=== PATIENT | female | born 1980 | race Caucasian/White ===

== ENCOUNTER 2024-01-22 21:11 | Emergency (ER) | payer BC, SELFPAY ==
[2024-01-22 21:16] VITALS: BP 128/86
--- NOTE | 2024-01-23 00:03 | ED.GENMED ---
History of Present Illness
General
Chief Complaint: Musculo-Skeletal Complaint
Source: patient
Time Seen by Provider: 01/22/24 23:52
Travel History
Have you had any contact with someone who has COVID-19?: No
Do you have any symptoms of coronavirus? Fever > 100 degrees, chills, cough, shortness of breath, sore throat, loss of taste or smell, muscle aches, or headache?: No
History of Present Illness
History of Present Illness:
43-year-old female presents emergency room complaining right knee pain. Patient a fall landing on her knee. Patient has pain with flexing of the knee. She has pain with weightbearing. No other injuries.
Past History
Past History
ED Past Medical History: Psychiatric (ADHD, anxiety, OCD)
ED Past Surgical History: Cholecystectomy and
Social History
Tobacco: Non-smoker
Alcohol: Occasional
Personal:
Living: with family
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
Family History
Family History: CAD (Dad had his first heart attack at age 41, at age 59 of CVA. Mom is still living); Negative Sudden
Phy Exam
Physical Exam
Physical Exam:
General: Awake, Alert, Oriented X3. No acute distress.
Vitals: unremarkable
Head: Atraumatic
Neuro: Nonfocal
Skin: Warm, dry, no rash
Extremities: pulses equal b/l, no edema, mild swelling right knee. Pain with flexion extension. No pain to palpation along the medial or lateral margins of the knee. Patella appears intact. Patient able to extend the leg fully at the hip
indicating the patellar mechanism is intact.
Course
Orders/Labs/Results
Orders:
Orders
01/22/24 21:20
Knee, Right 4 or More Views [CR Knee- Right 4 Or More View*] Urgent
Comment:
Reason For Exam: fall
01/23/24 00:01
Knee Immobilizer Right-Treatme ONCE
Ibuprofen [Motrin] 600 mg PO NOW STA
Vital Signs
Initial and Last Documented VS:
Initial Vital Signs
Temp Pulse Resp BP Pulse Ox
99.0 F 107 16 128/86 96
01/22/24 21:16 01/22/24 21:16 01/22/24 21:16 01/22/24 21:16 01/22/24 21:16
Last Documented Vital Signs
Temp Pulse Resp BP Pulse Ox
99.0 F 107 16 128/86 96
01/22/24 21:16 01/22/24 21:16 01/22/24 21:16 01/22/24 21:16 01/22/24 21:16
MDM/Problems Addressed
Differential Diagnosis Includes:
Fracture, contusion, meniscal injury
MDM/Problems Addressed:
No evidence of fracture on x-ray. Patient is a mild amount of swelling of the knee but no large effusion. Will place her in a knee immobilizer, provide crutches. Recommend NSAIDs, ice, rest and follow-up with Ortho
*Radiology
Radiology exam reviewed: preliminary read by ED provider (Reviewed the patient's knee x-ray and see no acute fracture or pathology)
*Pulse Oximetry
Patient hypoxic: no
*Critical Care Note
Total Time (30-74mins, 75-104mins- exclusive of procedures): Not Applicable
ED Attending Note
-
Portions of this chart may have been created with voice recognition software.� Occasional wrong word or��sound alike� substitutions may have occurred due to the inherent limitations of voice recognition software.
Discharge Plan
Departure
Patient Disposition: Home (Routine Discharge)
Date of Disposition: 01/23/24
Time of Disposition: 00:03
Patient with high blood pressure during this ER visit?: No
Condition: Good
Discharge Problem:
Sprain of right knee
Instructions: Knee Sprain (DC), How to use crutches
Prescriptions:
No Action
pramipexole 1 mg tablet
1 mg PO HS
escitalopram oxalate 20 mg tablet
20 mg PO DAILY
atomoxetine 60 mg capsule
60 mg PO DAILY
bupropion HCl [Wellbutrin SR] 150 mg Tablet Sustained-Release 12 Hr
150 mg PO BID
Referrals:
Ludin Farfan MD [Active] -
Brock Aguirre DO [Family Provider] -
Interventions
Interventions:
*Risk Screen - Suicide Last Done: 01/22/24 21:18
*General Assessment Last Done: 01/22/24 21:18
*Neglect/Abuse Screening Last Done: 01/22/24 21:18
ED-Musculoskeletal Assessment Last Done: 01/23/24 00:03
Discharge Date and Time
Print Language: [place] CITIZ[place]
[2024-01-23] MEDS: MOTRIN 600 MG PO (00:06)
== END 2024-01-23 00:28 | disposition home or self-care (01) ==
LOC: EMR 21:11
PROVIDERS: EMERGENCY PHYSICIAN Emergency Medicine; FAMILY PHYSICIAN Family Medicine
DX: S83.91XA Sprain of unspecified site of right knee, initial encounter (principal); X58.XXXA Exposure to other specified factors, initial encounter; F90.9 Attention-deficit hyperactivity disorder, unspecified type; F42.9 Obsessive-compulsive disorder, unspecified; Z82.3 Family history of stroke; Z82.49 Family history of ischemic heart disease and other diseases of the circulatory system; Z90.49 Acquired absence of other specified parts of digestive tract
CPT/HCPCS: 99283; 29505; 73564

== ENCOUNTER 2024-05-21 16:06 | Emergency (ER) | payer BC, SELFPAY ==
[2024-05-21 16:14] VITALS: BP 121/83
--- NOTE | 2024-05-21 19:19 | ED.GENMED ---
History of Present Illness
General
Chief Complaint: Head Injury
Source: patient
Time Seen by Provider: 05/21/24 19:05
History of Present Illness
History of Present Illness:
44yoF with a history of hypertension presenting for evaluation after a head injury around 2:30 PM this afternoon. Patient was on a swing when the swing broke. She fell backwards and back of her head on a metal beam. There was no loss of
consciousness. Patient reports headache, dizziness, nausea, photophobia, and speech disturbance immediately after the head injury. Her speech symptoms have resolved but she continues to have a headache. Patient has not taken anything
[id number] for her symptoms. She is not on any blood thinners.
Past History
Past History
ED Past Medical History: Psychiatric (ADHD, anxiety, OCD)
ED Past Surgical History: Cholecystectomy and
Social History
Tobacco: Non-smoker
Alcohol: Occasional
Personal:
Living: with family
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
Family History
Family History: CAD (Dad had his first heart attack at age 41, at age 59 of CVA. Mom is still living); Negative Sudden
Phy Exam
General Physical Exam
General Presentation: well appearing and no apparent distress
General age: appears stated age
General Skin: warm and dry
General Habitus: normal
General Mental: alert
ENT Exam
ENT Exam: other (+Posterior scalp hematoma and tenderness)
Additional ENT: No cervical spine tenderness
Eye Exam
Eye Exam: PERRL
Neurological Exam
Neurological Exam: alert and no motor deficits
Shanique Coma Scale
Eye Opening: Spontaneous
Verbal Response: Oriented
Motor Response: Obeys Commands
GCS Total Score: 15
Skin Exam
Skin Exam: normal color and warm/dry
Psychiatric Exam
Psychiatric Exam: normal mood/affect
Course
Orders/Labs/Results
Orders:
Orders
10/04/24 16:20
CT Head W/o Iv Contrast Urgent
Comment:
Reason For Exam: fall, hematoma to posterior head, no thinners
Vital Signs
Initial and Last Documented VS:
Initial Vital Signs
Temp Pulse Resp BP Pulse Ox
98.0 F 92 18 121/83 98
05/21/24 16:14 05/21/24 16:14 05/21/24 16:14 05/21/24 16:14 05/21/24 16:14
Last Documented Vital Signs
Temp Pulse Resp BP Pulse Ox
98.0 F 84 16 120/82 98
05/21/24 16:14 05/21/24 20:05 05/21/24 20:05 05/21/24 20:05 05/21/24 20:05
MDM/Problems Addressed
Differential Diagnosis Includes:
44yoF here after a head injury. No loss of consciousness. C/o headache, photophobia, dizziness, nausea. No blood thinners. Vital signs stable. She is awake, alert, with a GCS of 15. She has a posterior scalp hematoma and tenderness on exam. No
other external signs of head trauma. Cervical spine cleared via Nexus criteria. Differential diagnosis includes but is not limited to: Closed head injury, concussion, intracranial hemorrhage, skull fracture
CT head obtained in triage which is negative for acute intracranial abnormalities. Patient is stable for discharge. Supportive care discussed including rest and limiting screen time. Advised follow-up with PCP. ED return precautions discussed.
She expressed understanding and is agreeable to plan. She was discharged admission.
*Critical Care Note
Total Time (30-74mins, 75-104mins- exclusive of procedures): Not Applicable
ED Attending Note
-
Portions of this chart may have been created with voice recognition software.� Occasional wrong word or��sound alike� substitutions may have occurred due to the inherent limitations of voice recognition software.
Discharge Plan
Departure
Patient Disposition: Home (Routine Discharge)
Date of Disposition: 05/21/24
Time of Disposition: 19:20
Patient with high blood pressure during this ER visit?: No
Discharge Problem:
Closed head injury
Instructions: Head Injury in Adults (DC)
Prescriptions:
No Action
pramipexole 1 mg tablet
1 mg PO HS
escitalopram oxalate 20 mg tablet
20 mg PO DAILY
atomoxetine 60 mg capsule
60 mg PO DAILY
bupropion HCl [Wellbutrin SR] 150 mg Tablet Sustained-Release 12 Hr
150 mg PO BID
Activity Restrictions/Additional Instructions:
Apply ice to affected area. Take Tylenol and ibuprofen as needed for pain.
Please follow-up with your family doctor next week if symptoms persist. Return to the ER with any worsening symptoms.
Interventions
Interventions:
*Risk Screen - Suicide Last Done: 05/21/24 19:58
*General Assessment Last Done: 05/21/24 19:58
*Neglect/Abuse Screening Last Done: 05/21/24 19:58
ED- Fall Risk Assessment Last Done: 05/21/24 19:58
*ED COVID-19 Vaccine History Last Done: 05/21/24 19:58
*Nursing Disposition Last Done: 05/21/24 20:08
ED- Neurological Assessment Last Done: 05/21/24 19:58
ED-Skin Assessment Last Done: 05/21/24 19:58
Discharge Date and Time
Discharge Date/Time: 05/21/24 20:09
Print Language: SYRIAC
[2024-05-21 20:05] VITALS: BP 120/82
== END 2024-05-21 20:09 | disposition home or self-care (01) ==
LOC: EMR 16:06
PROVIDERS: EMERGENCY PHYSICIAN Emergency Medicine; FAMILY PHYSICIAN Family Medicine
DX: S09.90XA Unspecified injury of head, initial encounter (principal); S00.03XA Contusion of scalp, initial encounter; W19.XXXA Unspecified fall, initial encounter; I10 Essential (primary) hypertension; F41.9 Anxiety disorder, unspecified; F90.9 Attention-deficit hyperactivity disorder, unspecified type; F42.9 Obsessive-compulsive disorder, unspecified; Z82.3 Family history of stroke; Z82.49 Family history of ischemic heart disease and other diseases of the circulatory system; Z90.49 Acquired absence of other specified parts of digestive tract
CPT/HCPCS: 99284; 70450

== ENCOUNTER → 2024-08-27 10:25 | Outpatient (REF) | payer BC, SELFPAY | LOC: HWWDC 10:25 | PROVIDERS: ATTENDING PHYSICIAN Family Medicine; FAMILY PHYSICIAN Nurse Practitioner Adult Health | DX: Z12.31 Encounter for screening mammogram for malignant neoplasm of breast (principal) | CPT/HCPCS: 77063; 77067 ==

== ENCOUNTER → 2024-09-08 09:01 | Outpatient (REF) | payer BC, SELFPAY | LOC: WDC 09:01 | PROVIDERS: ATTENDING PHYSICIAN Family Medicine | DX: R92.2 Inconclusive mammogram (principal) | CPT/HCPCS: 76641 ==

== ENCOUNTER 2025-07-13 08:12 | Emergency (ER) | payer OTHER, SELFPAY ==
[2025-07-13 08:17] VITALS: BP 136/84
--- NOTE | 2025-07-13 09:05 | ED.GENMED ---
History of Present Illness
General
Chief Complaint: Skin Problem
Source: patient
Time Seen by Provider: 07/13/25 08:52
History of Present Illness
History of Present Illness:
45-year-old female with past medical history of hypertension, ADHD/anxiety/OCD presenting to the emergency department for evaluation of what she believes to be a left breast infection that she started to notice become erythematous this past Friday
and has gradually gotten worse, today increased pain and drainage. She denies any fevers but states she does have a feeling of being ill. Denies any history of similar. She notes that she has had 2 breast reductions in the past but does not
follow with any breast specialist here. She does note a history of mammograms in the past without any abnormalities. Family history was negative for breast cancer.
Past History
Past History
ED Past Medical History: HTN and Psychiatric (ADHD, anxiety, OCD)
ED Past Surgical History: Cholecystectomy, and Other
Social History
Tobacco: Non-smoker
Alcohol: Occasional
Drug: None
Personal:
Living: with family
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
Family History
Family History: CAD (Dad had his first heart attack at age 41, at age 59 of CVA. Mom is still living); Negative Sudden
Review of Systems
Review of Systems
All Other Systems: ROS reviewed and negative except as documented in HPI and ROS
Phy Exam
Physical Exam
Physical Exam:
GENERAL: Alert , in no apparent distress
EYE: conjunctiva clear
Head: Normocephalic atraumatic
NECK: Supple,
ENT: mmm.
CHEST WALL: Exam Chaperoned by ED MITRA Mckenna: Left breast is erythematous below the nipple/areola, indurated, ~1cm opening/draining abscess. hot to touch and tender. No nipple retractions. No drainage from nipple. No lymphadenopathy
LUNGS: no acute respiratory distress
NEUROLOGICAL: Alert and oriented
SKIN: Warm and dry, skin intact.
MUSCULOSKELETAL: well perfused.
PSYCH: Normal and appropriate interaction.
Scores
Heart Failure Risk
Heart Failure Risk Score: Not Applicable
Heart Score for Chest Pain Patients
STEMI patient?: Not applicable
Withdrawal Assessment of Alcohol
Withdrawal Assessment Completed?: Not applicable
Course
Orders/Labs/Results
Orders:
Orders
07/13/25 09:07
US Breast Left Ltd WDC Urgent
Reason for Exam: LEFT BREAST ABSCESS
Vital Signs
Initial and Last Documented VS:
Initial Vital Signs
Temp Pulse Resp BP Pulse Ox
98.6 F 100 16 136/84 98
07/13/25 08:17 07/13/25 08:17 07/13/25 08:17 07/13/25 08:17 07/13/25 08:17
Last Documented Vital Signs
Temp Pulse Resp BP Pulse Ox
98.6 F 100 16 136/84 98
07/13/25 08:17 07/13/25 08:17 07/13/25 08:17 07/13/25 08:17 07/13/25 09:07
MDM/Problems Addressed
Differential Diagnosis Includes:
Cellulitis
Abscess
Malignancy
Atopic Dermatitis
Candidiasis/Fungal infection
Ring worm
MDM/Problems Addressed:
45-year-old female presenting to the ER for evaluation of left breast pain and erythema, started noticing drainage and the increased pain today prompting her to come to the ER. No fevers. No history of diabetes. History of 2 previous breast
reductions. Will try for ultrasound today. Will notify the breast surgical team for hopeful close follow-up as well as patient will likely need mammogram in the near future. Will initiate patient on antibiotics. Disposition pending.
*Radiology
Radiology exam reviewed: radiology read reviewed
*Pulse Oximetry
SaO2: 98
Oxygen Mode of Delivery: Room air
Patient hypoxic: no
*Critical Care Note
Total Time (30-74mins, 75-104mins- exclusive of procedures): Not Applicable
Patient Management
Discussion with other providers: Orbitread Operator
Escalation/DeEscalation of care consider admission/obs:
Patient's ultrasound shows no evidence for fluid collection. Will treat with p.o. doxycycline for 10 days. I did discuss the case with breast surgeon, Dr. Beach, who is in agreement with treatment plan and can follow up with her on an outpatient
basis. Patient aware of return precautions to the ER
ED Attending Note
-
Portions of this chart may have been created with voice recognition software.� Occasional wrong word or��sound alike� substitutions may have occurred due to the inherent limitations of voice recognition software.
Discharge Plan
Departure
Patient Disposition: Home (Routine Discharge)
Date of Disposition: 07/13/25
Time of Disposition: 09:41
Patient with high blood pressure during this ER visit?: No
Discharge Problem:
Cellulitis of left breast
Instructions: Cellulitis (Skin Infection), Adult (DC)
Prescriptions:
New
doxycycline hyclate 100 mg tablet
100 mg PO BID 10 Days Qty: 20 0RF
No Action
pramipexole 1 mg tablet
1 mg PO HS
escitalopram oxalate 20 mg tablet
20 mg PO DAILY
atomoxetine 60 mg capsule
60 mg PO DAILY
bupropion HCl [Wellbutrin SR] 150 mg Tablet Sustained-Release 12 Hr
150 mg PO BID
Referrals:
Elayne Beach MD [Active, Surgical]
Brock Aguirre DO [Family Provider, Family Practice]
Interventions
Interventions:
*Risk Screen - Suicide Last Done: 07/13/25 08:17
*General Assessment Last Done: 07/13/25 08:17
*Neglect/Abuse Screening Last Done: 07/13/25 08:17
*ED- Fall Risk Assessment Last Done: 07/13/25 08:17
*ED COVID-19 Vaccine History Last Done: 07/13/25 08:17
*ED Influenza Vaccine History Last Done: 07/13/25 08:17
*Nursing Disposition Last Done: 07/13/25 10:08
ED-Skin Assessment Last Done: 07/13/25 10:08
Discharge Date and Time
Discharge Date/Time: 07/13/25 10:09
Print Language: HUNGARIAN
== END 2025-07-13 10:09 | disposition home or self-care (01) ==
LOC: EMR 08:12
PROVIDERS: EMERGENCY PHYSICIAN Emergency Medicine; FAMILY PHYSICIAN Family Medicine
DX: N61.0 Mastitis without abscess (principal); I10 Essential (primary) hypertension; Z90.49 Acquired absence of other specified parts of digestive tract
CPT/HCPCS: 99284; 76642

== ENCOUNTER 2025-07-27 21:02 | Observation (INO) | payer OTHER, SELFPAY ==
[2025-07-27 14:59] VITALS: BP 128/78
[2025-07-27 15:17] LABS: Hematocrit 40.3 % (37.0-47.0); Hemoglobin 13.9 g/dL (12.0-16.0); Mean Corp Hgb Conc. 34.5 g/dL (33.0-37.0); Mean Corpuscular Volume 88.6 fL (81.0-99.0); Nucleated Red Blood Cells % 0 %; Platelet Count 251 10^3/uL (130-400); Red Cell Dist. Width 12.1 % (11.5-14.5)
[2025-07-27 15:33] LABS: ALT (SGPT) 50 U/L (0-35); AST (SGOT) 44 U/L (14-36); Albumin 4.9 g/dl (3.5-5.0); Alkaline Phosphatase 54 U/L (38-126); Blood Urea Nitrogen 10 mg/dl (7-17); Calcium 9.4 mg/dl (8.4-10.2); Carbon Dioxide 29 mmol/L (22-30); Chloride 103 mmol/L (98-107); Glucose 81 mg/dl (70-99); Potassium 4.4 mmol/L (3.5-5.1); Sodium 137 mmol/L (135-145); Total Protein 8.2 g/dl (6.3-8.2); eGFR > 60.00
--- NOTE | 2025-07-27 18:22 | ED.GENMED ---
History of Present Illness
<Scott Peña PA-C - Last Filed: 07/27/25 18:29>
General
Chief Complaint: Skin Problem
Source: patient and records
Time Seen by Provider: 07/27/25 18:10
History of Present Illness
History of Present Illness:
45-year-old female with past medical history of hypertension, anxiety and OCD presenting to the ER at the request of her primary care team as well as breast care team after she has been dealing with a left breast cellulitis for 2 weeks, initially
seen by myself and started on doxycycline, had arranged follow-up with Dr. Beach where she was reportedly started on a second antibiotic after symptoms initially got better but then worsened again, started to notice improvement for about 3 days
but then started to get reoccurring erythema and pain. Patient denies any fevers or chills but states she does feel warm. No other concerns presently.
Past History
<Scott Peña PA-C - Last Filed: 07/27/25 18:29>
Past History
ED Past Medical History: HTN and Psychiatric (ADHD, anxiety, OCD)
ED Past Surgical History: Cholecystectomy, and Other
Social History
Tobacco: Non-smoker
Alcohol: Occasional
Drug: None
Personal:
Living: with family
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
Family History
Family History: CAD (Dad had his first heart attack at age 41, at age 59 of CVA. Mom is still living); Negative Sudden
Review of Systems
<SHELBY Yusuf Last Filed: 07/27/25 18:29>
Review of Systems
All Other Systems: ROS reviewed and negative except as documented in HPI and ROS
Phy Exam
<SHELBY Yusuf Last Filed: 07/27/25 18:29>
Physical Exam
Physical Exam:
GENERAL: Alert , in no apparent distress
EYE: conjunctiva clear
Head: Normocephalic atraumatic
NECK: Supple,
ENT: mmm.
LUNGS: no acute respiratory distress
LEFT BREAST: Chaperoned by ED MITRA Muñoz: Dressing overlying the inferior portion of the left breast with surrounding erythema, still mild induration. No drainage
NEUROLOGICAL: Alert and oriented
SKIN: Warm and dry, skin intact.
MUSCULOSKELETAL: well perfused.
PSYCH: Normal and appropriate interaction.
Scores
<Scott Peña PA-C - Last Filed: 07/27/25 18:29>
Heart Failure Risk
Heart Failure Risk Score: Not Applicable
Heart Score for Chest Pain Patients
STEMI patient?: Not applicable
Withdrawal Assessment of Alcohol
Withdrawal Assessment Completed?: Not applicable
Sepsis
<Scott Peña PA-C - Last Filed: 07/27/25 18:29>
Sepsis Screening
Sepsis Assessment: Sepsis Ruled Out
Sepsis Screen
Sepsis Screen: Sepsis Ruled Out
Date: 07/27/25
Time: 18:29
<Petros Hearn DO - Last Filed: 07/27/25 18:33>
Sepsis Screen
Sepsis Screen: Sepsis Ruled Out
Date: 07/27/25
Time: 18:31
Course
<Scott Peña PA-C - Last Filed: 07/27/25 18:29>
Orders/Labs/Results
Orders:
Orders
07/27/25 15:09
Complete Blood Count/With Diff Urgent
Comprehensive Metabolic Panel Urgent
Lactic Acid Urgent
Blood Culture Urgent
ILANA Source: Blood/Venous
Specimen Description:
07/27/25 18:22
Vancomycin [Vancocin] 2,000 mg 0.9% Sodium Chloride 500 ml [Nss] 500 ml IV NOW
07/27/25 18:26
Ketorolac [Toradol] 30 mg IV NOW STA
07/27/25 18:31
Morphine Sulfate 4 mg IV NOW STA
Abnormal Lab Results
07/27/25
15:09
Lactic Acid < 0.5 L mmol/L
(0.7-2.0)
AST 44 H U/L
(14-36)
ALT 50 H U/L
(0-35)
07/27/25 15:09
07/27/25 15:09
Vital Signs
Initial and Last Documented VS:
Initial Vital Signs
Temp Pulse Resp BP Pulse Ox
98.4 F 96 16 128/78 95
07/27/25 14:59 07/27/25 14:59 07/27/25 14:59 07/27/25 14:59 07/27/25 14:59
Last Documented Vital Signs
Temp Pulse Resp BP Pulse Ox
98.4 F 96 16 128/78 95
07/27/25 14:59 07/27/25 14:59 07/27/25 14:59 07/27/25 14:59 07/27/25 18:26
<Petros Hearn, DO - Last Filed: 07/27/25 18:33>
Orders/Labs/Results
Orders:
Orders
07/27/25 15:09
Complete Blood Count/With Diff Urgent
Comprehensive Metabolic Panel Urgent
Lactic Acid Urgent
Blood Culture Urgent
ILANA Source: Blood/Venous
Specimen Description:
07/27/25 18:22
Vancomycin [Vancocin] 2,000 mg 0.9% Sodium Chloride 500 ml [Nss] 500 ml IV NOW
07/27/25 18:26
Ketorolac [Toradol] 30 mg IV NOW STA
07/27/25 18:31
Morphine Sulfate 4 mg IV NOW STA
Abnormal Lab Results
07/27/25
15:09
Lactic Acid < 0.5 L mmol/L
(0.7-2.0)
AST 44 H U/L
(14-36)
ALT 50 H U/L
(0-35)
07/27/25 15:09
07/27/25 15:09
Vital Signs
Initial and Last Documented VS:
Initial Vital Signs
Temp Pulse Resp BP Pulse Ox
98.4 F 96 16 128/78 95
07/27/25 14:59 07/27/25 14:59 07/27/25 14:59 07/27/25 14:59 07/27/25 14:59
Last Documented Vital Signs
Temp Pulse Resp BP Pulse Ox
98.4 F 96 16 128/78 95
07/27/25 14:59 07/27/25 14:59 07/27/25 14:59 07/27/25 14:59 07/27/25 18:26
<Scott Peña PA-C - Last Filed: 07/27/25 18:29>
MDM/Problems Addressed
Differential Diagnosis Includes:
Breast abscess
Cellulitis
Patient states no malignancy on further imaging
MDM/Problems Addressed:
45-year-old female presenting to the ER for evaluation and ultimately admission for IV antibiotics due to reoccurring breast abscess/cellulitis. Patient has been on 2 separate antibiotics with intermittent resolution but then reoccurrence of the
symptoms. Reportedly culture grew MRSA. Will initiate patient on IV vancomycin. Will notify hospitalist team.
<Scott Peña PA-C - Last Filed: 07/27/25 18:29>
*Pulse Oximetry
SaO2: 95
Oxygen Mode of Delivery: Room air
Patient hypoxic: no
*Critical Care Note
Total Time (30-74mins, 75-104mins- exclusive of procedures): Not Applicable
Data Reviewed
Review of Other/Old Records Reveals: Labs and Records
<Scott Peña PA-C - Last Filed: 07/27/25 18:29>
Patient Management
Discussion with other providers: Hospitalist
Escalation/DeEscalation of care consider admission/obs:
Hospitalist team was notified and accepts for continued evaluation and treatment
ED Attending Note
<Scott Peña PA-C - Last Filed: 07/27/25 18:29>
-
Portions of this chart may have been created with voice recognition software.� Occasional wrong word or��sound alike� substitutions may have occurred due to the inherent limitations of voice recognition software.
<Petros Hearn DO - Last Filed: 07/27/25 18:33>
ED Attending Note
Patient seen and examined by attending physician: Yes
I performed the substantive portion of visit, reviewed & personally made and approve the management plan that is documented in note by myself or EBONY.: Yes
ED Attending Note:
I have seen and evaluated the patient with a [id number] encounter. I have spoken to the advance practicer provider and involved in the medical history, the physical exam, medical decision making.
Evaluation and management service: agree unless noted differently below.
Results interpretation: agree unless noted differently below.
Focused HPI: 45-year-old female presenting for evaluation of persistent left breast cellulitis. Patient has been on antibiotics and recent culture tested positive for MRSA. Patient states she was sent in for IV antibiotics
Physical exam: Ulceration noted to the under aspect of left breast with mild cellulitic changes. Breast exam performed with nurse punching machine operator Wanda at bedside
Medical Decision Making: Given the persistent symptoms, will start IV vancomycin and admit
Discharge Plan
Departure
Patient Disposition: Admit
Date of Disposition: 07/27/25
Time of Disposition: 18:24
Presentation/result/management discussed w/ accepting MD/DO: Hospitalist
Discharge Problem:
Cellulitis of left breast
Prescriptions:
No Action
pramipexole 1 mg tablet
1 mg PO HS
escitalopram oxalate 20 mg tablet
20 mg PO DAILY
atomoxetine 60 mg capsule
60 mg PO DAILY
bupropion HCl [Wellbutrin SR] 150 mg Tablet Sustained-Release 12 Hr
150 mg PO BID
doxycycline hyclate 100 mg tablet
100 mg PO BID 10 Days Qty: 20 0RF
Referrals:
Brock Aguirre DO [Family Provider, Family Practice]
Discharge Date and Time
Print Language: FRISIAN
[2025-07-27 18:28] VITALS: BMI 33.4
[2025-07-27] MEDS: MORPHINE SULFATE 4 MG IV (18:46)
[2025-07-27 19:00] VITALS: BP 117/68
[2025-07-27] MEDS: VANCOCIN 540 MG IV (19:04)
--- NOTE | 2025-07-27 19:33 | HPS.HSE ---
Family Physician
-
Family Physician: Brock Aguirre
Chief Complaint
-
Left breast erythema, pain
History of Present Illness
45-year-old female who started with a left breast infection 07/10/2025 she presented to the ER on 07/13/2025 due to increased erythema pain and drainage she was placed on doxycycline 100 mg twice daily for 10 days to finish on 07/22/2025. She was
seen by [facility] on July 19 and July 21 where she had debridement of a left breast abscess and was reportedly started on second antibiotic Bactrim 07/24/2025 1 tab twice daily for culture that grew MRSA which we cannot verify in our system she
believes was sent to [facility]. She reported initially she felt symptoms were getting better but then over the past 3 days she has had reoccurring erythema and pain. Also reports feeling tired and rundown. According to patient's pictures erythema
has gone from bright red to slight pink but is still occupying half of the lower portion of her breast she has a central open wound with 100% sloughing that was debrided in the office on July 21. She denies fever, chills, chest pain,
palpitations, cough, shortness breath, abdominal pain, nausea, vomiting, diarrhea, urinary symptoms. Past medical history of anxiety, depression, OCD, ADHD, hypertension, class I obesity
Medical History
Past Medical History
Past Medical History: Reports Other
Additional Past Medical History:
anxiety
depression
OCD
ADHD
hypertension
class I obesity
Migraine history
Past Surgical History: Reports Other
Additional Past Surgical History:
Cholecystectomy
Breast reduction x 2
section x 2
For eye surgery
Social History
Tobacco: Non-smoker
Alcohol: Occasional
Drug: None
Living: With Family
Employment: Not Employed
Family History
Family History: Not pertinent
Allergies / Home Medications
Allergies reflects when Allergies were last updated in [employer].
Home Medications with original date entered in [employer]
Allergy/Medication List:
Allergies
Allergy/AdvReac Type Severity Reaction Status Date / Time
Penicillins Allergy Rash Verified 07/13/25 08:19
Home Medications
bupropion HCl 150 mg tablet,12 hr sustained-release (Wellbutrin SR) 150 mg PO BID Mental Health/Anxiety 01/07/23
pramipexole 1 mg tablet 1 mg PO HS Neurological Condition 01/07/23
buspirone 10 mg tablet 10 mg PO BID 07/27/25
escitalopram oxalate 20 mg tablet (Lexapro) 20 mg PO DAILY 07/27/25
lisdexamfetamine 40 mg capsule 40 mg PO DAILY 07/27/25
semaglutide (weight loss) 0.25 mg/0.5 mL subcutaneous pen injector (Wegovy) 0.25 mg SC ORDONEZ 07/27/25
sulfamethoxazole 800 mg-trimethoprim 160 mg tablet 1 tab PO BID 07/27/25
trazodone 50 mg tablet 50 mg PO HS 07/27/25
valsartan 80 mg tablet 80 mg PO HS 07/27/25
Review of Systems
-
A 12 point ROS was completed and negative except as noted: Yes
Constitutional: Reports Fatigue; Denies Fever or Chills
EENT: Reports Other (Reports feels congested); Denies Sore Throat or Runny Nose
Respiratory: Denies Cough or Trouble Breathing
Cardiac: Denies Chest Pain, Diaphoresis, Palpitations or Syncope
Abdomen/GI: Denies Abdominal Pain, Nausea, Vomiting, Diarrhea, Constipated, Bloody Stools or Black Stools
: Denies Dysuria, Frequency, Flank Pain, Incontinence, Difficulty Voiding or Urgency
Musculoskeletal: Denies Joint Pain or Edema
Skin: Reports Other (Left breast lower half slight pink in color soft, central lower part of breast open wound size of quarter with 100% yellow sloughing had prior debridement on 07/21/2025 in office); Denies Itching or Rash
Neurological: Denies Dizzy or Headache
Endocrine: Reports No Symptoms
Hematologic/Lymphatic: Reports No Symptoms
Psych: Reports Calm
Physical Exam
Vital Signs
Vital Signs
Temp Pulse Resp BP Pulse Ox
98.4 F 85 20 117/68 95
07/27/25 14:59 07/27/25 19:04 07/27/25 19:04 07/27/25 19:00 07/27/25 19:04
Physical Exam
General: Comfortable and Conversant; No Fever or Chills
HEENT: NormoCephalic, Anicteric, Moist mucous membranes, [place] Conjunctivae and No Ptosis
Respiratory: Clear; No Wheezes or Rales
Cardiac: S1/S2 and Regular Rhythm; No Murmur, Rub, Gallop or Peripheral Edema
Breast: Other (Left breast lower half slight pink in color soft, central lower part of breast open wound size of quarter with 100% yellow sloughing had prior debridement on 07/21/2025 in office)
GI: Soft, Non Tender, Non Distended, Normal Bowel Sounds and No Hepatosplenomegaly
Rectal: Deferred by Provider
Genito-urinary: Deferred by me
Musculoskeletal: No Clubbing, No Cyanosis and No Edema
Skin: Warm and Dry; No Rash
Neuro: AO x 3, No Motor Deficits, Nonfocal/grossly intact, Cranial Nerves Intact and No Sensory Deficits; No Slurred Speech, Facial Droop, Tremors or Sedated
Psych: Calm
Laboratory Results
-
07/27/25 15:09
07/27/25 15:09
Laboratory Results
Lactic Acid < 0.5 mmol/L (0.7-2.0) L 07/27/25 15:09
Total Bilirubin 0.6 mg/dl (0.2-1.3) 07/27/25 15:09
AST 44 U/L (14-36) H 07/27/25 15:09
ALT 50 U/L (0-35) H 07/27/25 15:09
Alkaline Phosphatase 54 U/L (38-126) 07/27/25 15:09
Data Reviewed
-
Lab Data: Labs Reviewed by me
Impression/Plan
-
Impression/plan:
Observation MedSurg
# Left breast cellulitis with open wound failure outpatient ABX
Patient completed 10 days of doxycycline and current 3 days Bactrim twice daily(Dr. Wang)
Had debridement of abscess on 07/21/2025
Patient reports grew MRSA unsure where culture was obtained
- Zyrtec 10 milligrams now for itching
- Continue IV vancomycin
-Tylenol, oxycodone
- Check COVID, flu due to patient feeling worn down and fatigue
-Tylenol
- Follow CBC, CMP
#HTN
BP 117/68
Continue valsartan 80 mg at bedtime
#Anxiety
#OCD
#Depression
- Continue BuSpar 10 mg twice daily, Wellbutrin 150 mg twice daily, lisdexamphetamine 40 mg daily
- Pramipexole 1 mg at bedtime
#Class 1 obesity
Patient on Wegovy 0.25 mg subcu Sundays
#Insomnia
Continue trazodone 50 mg at bedtime
DVT prophylaxis
Subcu Lovenox
Full code
--- NOTE | 2025-07-27 19:58 | W.PN.UPDATE ---
Update Note
Progress Note Update
This is an addendum to H&P written by LEARNING DEVELOPER Teresa Denson
I saw and examined the patient.
The LEARNING DEVELOPER's note was reviewed and I agree with the note.
Comment:
Ms. Carol Zaragoza is a 45 yo woman with hx HTN, anxiety, OCD, recent treatment left breast cellulitis (ER visit 07/13) s/p 10 day Doxycycline course, followed by debridement 07/[address] Beach's office and initiation of Bactrim presents to the
ER with worsening pain of left breast. Patient states she is on day 6 of Bactrim. She reports that she has increased fatigue and congestion. Her left breast is abstract maker in redness but she notices increased streaking over past couple of days.
Triage VS: T 98.4, P 96, RR 16, BP 128/78, SpO2 95%
On exam patient is in no acute distress, mild congestion. No wheezing. Left breast with small wound with granulation tissue surrounding erythema and some mild light erythema. No area of fluctuance/ induration.
LABS: WBC 8, Hg 13.9, PLT 251, Na 137, K+ 4.4, Cl 103, CO2 29, BUN 10, Cr 0.8, Glucose 81
T. Bili 0.6, AST 44, ALT 50
Left Breast Cellulitis
-report that outpatient culture returned positive for MRSA
-she is on day 6 of Bactrim with overall improved appearance of breast but increased pain.
-admit to obs
-continue IV Vancomycin, can likely resume Bactrim on discharge
-try to obtain outpatient culture
Fatigue/Congestion
-patient reports feeling unwell, fatigue brought her in. Possible she has a viral infection contributing more to symptoms. Will check flu and covid.
Essential HTN - [employer] Valsartan
Anxiety
OCD
-continue home med regimen
DVT PPx Lovenox subQ
FULL CODE
[2025-07-27] MEDS: ZYRTEC 10 MG PO (20:16)
[2025-07-27 20:17] VITALS: BP 114/71
[2025-07-27 20:44] LABS: COVID-19 Antigen Negative (Negative)
[2025-07-27 21:27] VITALS: BP 126/77; BMI 33.2
--- NOTE | 2025-07-27 21:37 | PHA.VAN.IN ---
Assessment
- Assessment
Renal Function: Appears similar to baseline
AUC Dosing Plan
- Empiric Dosing
Initial / Loading Dose: VANCOMYCIN 2000 MG IV ~ 1900
Maintenance Regimen: VANCOMYCIN 1500 MG IV Q12H
Estimated AUC (mcg*h/mL): 467
Estimated Peak (mcg*h/mL): 30.6
Estimated Trough (mcg/ml): 11.1
Estimated Half Life (H): 7.2
- Monitoring
No levels ordered at this time: Please consider levels in the next few days.
Pharmacokinetics Vancomycin I
- -
Patient Age: 45
Patient Sex: Female
Vancomycin Day #: 1
Indication: Skin And Soft Tissue
Requesting Provider: Jarett TRACEY
Pertinent Antimicrobial Allergies:
PCN w. rash
Height / Weight:
Height 5 ft 9 in
Actual Weight 102.058 kg
Pertinent Past Medical History: Pt. presented w. left breast cellulitis for 2 weeks.
- Vital Signs / Lab Results
Temp Pulse Resp BP Pulse Ox
98.7 F 104 17 126/77 99
07/27/25 21:27 07/27/25 21:27 07/27/25 21:27 07/27/25 21:27 07/27/25 21:27
Lab Results - Hematology
07/27/25
15:09
WBC 8.0
Lab Results - Chemistry
07/27/25
15:09
BUN 10
Creatinine 0.8
Albumin 4.9
07/27/25
15:09
Lactic Acid < 0.5 L
Microbiology Results
07/27/25 20:15 Influenza Types A & B (KRISTAN) - Final
Nasal Swab Negative for Influenza A & B, NAAT
Negative results must be combined with clinical observations
and patient history.
Nucleic Acid Amplification test (NAAT)performed on the
[employer] NOW platform.
[2025-07-27] MEDS: WELLBUTRIN SR (12 hour sustained release) 150 MG PO (22:05)
[2025-07-27] MEDS: DESYREL 50 MG PO (22:05)
[2025-07-27] MEDS: BUSPAR 10 MG PO (22:05)
[2025-07-27] MEDS: MIRAPEX, GENERIC 1 MG PO (22:34)
[2025-07-27] MEDS: DIOVAN 80 MG PO (22:34)
[2025-07-27 23:00] VITALS: BP 96/54
--- NOTE | 2025-07-28 02:28 | PTCARENOTE ---
Pt. would like to brush teeth in the morning.
--- NOTE | 2025-07-28 02:41 | PTCARENOTE ---
07/27 @ 2120 Pt received from ED via stretcher w/ belongings; IV Vancomycin infusing via LAC IV. Pt c/o itching all over body. There is no visible rash. Pt was administered Zyrtec in ED for this. Medsurg order. VSS. Plan of care reviewed. Call rabago
within reach.
[2025-07-28 06:02] LABS: Hematocrit 37.1 % (37.0-47.0); Hemoglobin 12.8 g/dL (12.0-16.0); Mean Corp Hgb Conc. 34.5 g/dL (33.0-37.0); Mean Corpuscular Volume 87.3 fL (81.0-99.0); Nucleated Red Blood Cells % 0 %; Platelet Count 229 10^3/uL (130-400); Red Cell Dist. Width 12.2 % (11.5-14.5)
[2025-07-28] MEDS: VANCOCIN 530 MG IV ×2 (06:25→17:48)
[2025-07-28 06:27] LABS: ALT (SGPT) 44 U/L (0-35); AST (SGOT) 37 U/L (14-36); Albumin 3.9 g/dl (3.5-5.0); Alkaline Phosphatase 56 U/L (38-126); Blood Urea Nitrogen 8 mg/dl (7-17); Calcium 9.0 mg/dl (8.4-10.2); Carbon Dioxide 24 mmol/L (22-30); Chloride 105 mmol/L (98-107); Estimated Creatinine Clearance 111 ml/min; Glucose 88 mg/dl (70-99); Potassium 4.5 mmol/L (3.5-5.1); Sodium 136 mmol/L (135-145); Total Protein 6.8 g/dl (6.3-8.2); eGFR > 60.00
[2025-07-28 07:58] VITALS: BP 114/64
[2025-07-28] MEDS: BUSPAR 10 MG PO (08:32)
[2025-07-28] MEDS: WELLBUTRIN SR (12 hour sustained release) 150 MG PO (08:32)
[2025-07-28] MEDS: LEXAPRO 20 MG PO (08:32)
--- NOTE | 2025-07-28 08:50 | PHA.VAN.FU ---
Vancomycin Assessment / Plan
- Assessment
Renal Function: Stable
WBC's are: WNL
In the past 24 hrs, patient has been: Afebrile
- Dosing Plan
Continue: Vanc 1500mg Q12H
- Monitoring Plan
No level(s) ordered at this time: consider levels in next few days
- Follow Up
Pharmacy will continue to follow.
Vancomycin Follow UP
- -
Patient Age: 45
Patient Sex: Female
Vancomycin Day #: 2
Indication: Skin And Soft Tissue
Requesting Provider: Jarett TRACEY
Pertinent Antimicrobial Allergies:
penicillins - rash
Height / Weight:
Height 5 ft 9 in
Actual Weight 102.058 kg
Pertinent Past Medical History: BMI ~33
- Vital Signs / Lab Results
Temp Pulse Resp BP Pulse Ox
98.1 F 87 18 114/64 93
07/28/25 07:58 07/28/25 07:58 07/28/25 07:58 07/28/25 07:58 07/28/25 07:58
Lab Results - Hematology
07/27/25 07/28/25
15:09 05:30
WBC 8.0 6.4
Lab Results - Chemistry
07/27/25 07/28/25
15:09 05:30
BUN 10 8
Creatinine 0.8 0.8
Estimated Creat Clear 111
Albumin 4.9 3.9
07/27/25
15:09
Lactic Acid < 0.5 L
Microbiology Results
07/27/25 20:15 Influenza Types A & B (KRISTAN) - Final
Nasal Swab Negative for Influenza A & B, NAAT
Negative results must be combined with clinical observations
and patient history.
Nucleic Acid Amplification test (NAAT)performed on the
[employer] platform.
--- NOTE | 2025-07-28 11:19 | CON.ID ---
Consultation
-
Date/Time Consultation Requested: 07/28/2025 1057
Date/Time Consultation Performed: 07/28/2025 1120
Requesting Provider: Dr. Tracy
Performing Provider: Dr. Gilbert
Reason for Consultation: Breast cellulitis
Chief Complaint / Past History
History of Present Illness
Carol Zaragoza is a 45-year-old female with a significant past medical history of ADHD, OCD being evaluated at the request of Dr. Tracy regards to left breast cellulitis. History is obtained from chart review, along with patient interview.
The patient initially presented to the [facility] ER on 07/13/2025 after developing left breast erythema approximately 4 days prior. 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
left breast, likely secondary to rubbing from the bra that she was wearing. The blister subsequently popped and she developed pain which she notes over time a grown progressively worse, with increased drainage on that day. She reported no fevers,
but had a general feeling of being unwell. She notes no prior history of breast cellulitis but has a history of prior breast reduction x2. She ultimately was discharged to home on a course of doxycycline 100 mg twice a day.
She presents back to the ER yesterday at the request of her PCP and Breast Surgeon. According to reviewed notes she had had some initial improvement on the doxycycline, only for erythema to return. Bactrim was then added, but 2-3 days ago she
noted increasing discomfort under the left breast and was advised to come to the hospital. She reports that she has an outpatient culture that is positive for MRSA.
At this time she denies any fevers, but does note prior chills. She notes that the breast area is still quite sore. She denies any spreading erythema into the outer quadrants of the breast and denies any axillary pain. She denies any history of
nausea, vomiting or diarrhea.
Past History
Additional Past Medical History:
PCOS
ADHD
OCD
Anxiety
Additional Past Surgical History:
Breast reduction x 2
Cholecystectomy
Eye surgery
Allergy History:
diphenhydramine (From Benadryl) Allergy (Verified 07/27/25 21:19)
Swelling mouth per pt
Penicillins Allergy (Verified 07/13/25 08:19)
Rash
Medications Reviewed: Yes
Current Antibiotics:
Vancomycin (dosing per pharmacy)
Outpatient Bactrim, doxycycline
Social History
Tobacco: Non-Smoker
Alcohol: None
Drug: None
Living: With Family
Employment: Employed
Family History
Family History: Not Pertinent
Review of Systems
Vital Signs
Temp Pulse Resp BP Pulse Ox
98.1 F 87 18 114/64 93
07/28/25 07:58 07/28/25 07:58 07/28/25 07:58 07/28/25 07:58 07/28/25 07:58
Physical Exam
Physical Exam
Constitutional: No Acute Distress, Comfortable and Non-toxic
Eyes: No Conjunctival Hemorrhage and Sclera Anicteric
Oral: No Thrush and No Ulcers
Cardiovascular: S1/S2; Negative S3/S4
Pulmonary: Clear and Non Labored
Gastrointestinal: Soft and Non Tender
Wound: Other (1 cm wound under left breast with a small degree of slough in the base. Mild periwound erythema. No significant/large amount of erythema over breast area.)
Neurological: Awake and Alert
Psychological: Calm
Lab / Diagnostic Study Results
07/28/25 05:30
07/28/25 05:30
Abs Immat Gran (auto) 0.0 10^3/uL (0-0.05) 07/28/25 05:30
Absolute Neuts (auto) 4.1 10^3/uL (1.4-6.5) 07/28/25 05:30
Absolute Lymphs (auto) 1.5 10^3/uL (1.2-3.4) 07/28/25 05:30
Absolute Monos (auto) 0.5 10^3/uL (0.1-0.6) 07/28/25 05:30
Absolute Basos (auto) 0.0 10^3/uL (0-0.2) 07/28/25 05:30
Immature Gran % 0.5 % (0-0.5) 07/28/25 05:30
Neutrophils % 64.7 % (42.2-75.2) 07/28/25 05:30
Lymphocytes % 24.1 % (20.5-51.1) 07/28/25 05:30
Monocytes % 8.0 % (1.7-9.3) 07/28/25 05:30
Eosinophils % 2.2 % (0-6) 07/28/25 05:30
Basophils % 0.5 % (0-2) 07/28/25 05:30
Lactic Acid < 0.5 mmol/L (0.7-2.0) L 07/27/25 15:09
Microbiology Results
Micro:
07/27/25 20:15 Influenza Types A & B (KRISTAN) - Final
Nasal Swab Negative for Influenza A & B, NAAT
Negative results must be combined with clinical observations
and patient history.
Nucleic Acid Amplification test (NAAT)performed on the
[employer] NOW platform.
07/27/25 18:52 Blood Culture - Pending
Blood/Venous
07/27/25 15:09 Blood Culture - Pending
Blood/Venous
Outpatient microbiology cultures from 07/19/2025 were reviewed, revealed the presence of MSSA, sensitive to clindamycin, levofloxacin, linezolid, oxacillin, tetracycline, Bactrim.
Imaging:
07/13/2025 Left breast ultrasound: there is marked skin thickening. No intradermal mass. No cyst or solid mass within the breast tissue. No focal fluid collection noted. Please see full dictation for additional detail.
Assessment / Plan
Left breast wound/ulceration
Left breast cellulitis
Subjective chills
Mild transaminitis
Recommendations:
Unclear reason for worsening of symptoms while on dual antibiotic therapy.
Outpatient wound cultures reviewed, and grew MSSA (not MRSA as patient stated).
Current medication list precludes the use of linezolid.
Would continue with an additional 7 days of Bactrim.
Continue with local care to the area. Patient reports that she was using gauze directly on the wound. I have advised the use of Mepilex, or Adaptic, and stop the use of Medihoney.
Care Review
Plan reviewed with: Physician (Hospitalist)
[2025-07-28] MEDS: TYLENOL 650 MG PO ×2 (11:44→17:53)
--- NOTE | 2025-07-28 14:12 | W.PN.HOSP.TC ---
Addendum entered and electronically signed by Ata Tracy MD 07/28/25 14:40:
Per ID, outpatient wound cultures grew out MSSA, not MRSA.
Patient was to finish her Bactrim on 07/29/2025.
ID recommends an additional 7 days of Bactrim through 08/05/2025.
Original Note:
Today's Communication/Plan
-
Cleared by ID for discharge today
Assessment / Plan
Assessment / Plan
# Left breast cellulitis with open wound failure outpatient ABX
Patient completed 10 days of doxycycline and current 3 days Bactrim twice daily(Dr. Wang)
Had debridement of abscess on 07/21/2025
Patient reports grew MRSA unsure where culture was obtained, currently on IV vanc
Appreciate ID input, patient's cellulitis is improving, recommend discharge on previous Bactrim
Follow-up with Dr. Wang in the office
#Weakness/fatigue
#Cough
COVID, flu neg
Suspicious for acute viral syndrome
Supportive care
#HTN
Continue valsartan 80 mg at bedtime
#Anxiety
#OCD
#Depression
Continue BuSpar 10 mg twice daily, Wellbutrin 150 mg twice daily, lisdexamphetamine 40 mg daily
Pramipexole 1 mg at bedtime
#Class 1 obesity
Patient on Wegovy 0.25 mg subcu Sundays
#Insomnia
Continue trazodone 50 mg at bedtime
DVT prophylaxis - Subcu Lovenox
Full code
Updated family at bedside
Total time spent to see the patient on the floor, examine the patient, review data and lab results, discuss treatment plan with patient, nursing staff around 35 minutes.
Physical Exam
Constitutional: No Acute Distress, Comfortable and Non-toxic
Eyes: No Conjunctival Hemorrhage and Sclera Anicteric
Oral: No Thrush and No Ulcers
Cardiovascular: S1/S2; Negative S3/S4
Pulmonary: Clear and Non Labored
Gastrointestinal: Soft and Non Tender
Wound: Other (1 cm wound under left breast with a small degree of slough in the base. Mild periwound erythema. No significant/large amount of erythema over breast area.)
Neurological: Awake and Alert
Psychological: Calm
Anticipated Discharge: Today
Subjective/Interval History
-
Date of Service: July 28, 2025
Patient reports her left breast pain has improved. She continues to feel weak, same as admission. Her fatigue has improved. She does have a cough. Denies chest pain, denies shortness of breath. No fever, no vomiting.
Objective Data
-
Labs:
Laboratory Results
07/28/25
05:30
WBC 6.4
Hgb 12.8
Hct 37.1
Plt Count 229
Sodium 136
Potassium 4.5
Chloride 105
Carbon Dioxide 24
BUN 8
Creatinine 0.8
Glucose 88
Calcium 9.0
Total Bilirubin 0.5
AST 37 H
ALT 44 H
Alkaline Phosphatase 56
Vital Signs:
Vital Signs
Temp Pulse Resp BP Pulse Ox
98.1 F 87 18 114/64 93
07/28/25 07:58 07/28/25 07:58 07/28/25 07:58 07/28/25 07:58 07/28/25 07:58
--- NOTE | 2025-07-28 14:14 | W.DCSUMMARY ---
Discharge Summary
Discharge Data
Date of Admission: 07/27/25
Date of Discharge: 07/28/25
-
Pending Results: No
Hospital Course
Discharge diagnosis:
Improving left breast cellulitis
Acute viral syndrome
Weakness/fatigue/cough/congestion
Anxiety/depression
Essential hypertension
Consults: ID
Hospital course:
45-year-old female with a past medical history of HTN, anxiety, OCD, recent treatment of left breast cellulitis (ER visit 07/13) s/p 10 day Doxycycline course, followed by debridement 07/[address] Beach's office and initiation of Bactrim presents
to the ER with worsening pain of left breast. Patient states she is on day 6 of Bactrim. She reports that she has increased fatigue and congestion. Her left breast is table attendant in redness but she notices increased streaking over past couple of
days. Patient was observed overnight, and treated with IV vancomycin. She was seen in conjunction with ID, who was able to find her outpatient culture, which grew MSSA, not MRSA. She felt better the following hospital day. She is cleared by ID
for discharge. She was initially to finish her Bactrim on 07/29. ID recommends an additional 7 days, through 08/05. A new prescription was provided.
For her congestion, weakness and fatigue, suspect she has an acute viral syndrome. She is coughing. She denies shortness of breath. She was negative for COVID and flu. Recommend that she rests at home.
Patient is medically stable for discharge. She needs to follow-up with her PCP in 1 week, and her breast surgeon in 1-2 weeks.
Disposition: Home self-care
Discharge planning: Required 36-minute
Discharge Plan
-
Patient Disposition: Home (Routine Discharge)
Discharge Diagnosis/Procedures: Improving left breast cellulitis, probable viral syndrome
Condition: Good
Diet: Low Fat and Low Cholesterol
Activity: As tolerated
Driving Restrictions: As prior to admission
Activity Restrictions/Additional Instructions:
ID recommends an additional 7 days of Bactrim, through 08/05/2025.
Follow-up with your breast surgeon as soon as possible.
Referrals:
Brock Aguirre DO [Family Provider, [facility]] - in one week
Prescriptions:
Continued
pramipexole 1 mg tablet
1 mg PO HS
bupropion HCl [Wellbutrin SR] 150 mg Tablet Sustained-Release 12 Hr
150 mg PO BID
trazodone 50 mg Tablet
50 mg PO HS
valsartan 80 mg Tablet
80 mg PO HS
buspirone 10 mg Tablet
10 mg PO BID
escitalopram oxalate [Lexapro] 20 mg Tablet
20 mg PO DAILY
lisdexamfetamine 40 mg Capsule
40 mg PO DAILY
Wegovy 0.25 mg/0.5 mL Pen Injector
0.25 mg SC ORDONEZ
sulfamethoxazole-trimethoprim 800-160 mg Tablet
1 tab PO BID 7 Days Qty: 14 0RF
Rx Instructions:
started 07/19 10 day regimen ending 07/29 - MO
Discharge Orders:
Discharge Patient (As Directed); Ordered 07/28/25
Ordered By: Ata Tracy
Discharge Date and Time
Discharge Date/Time: 07/28/25 20:35
Print Language: PALAUAN
[2025-07-28 15:23] VITALS: BP 133/81
--- NOTE | 2025-07-28 16:02 | CM ---
Alert awake oriented patient who lives with her Trevon and 2 children 14yo and 18 y in a 1 story home with 2 steps to enter .She is independent in [facility] daily living.She does drive .She was offered VN she declined need.Pt said she will
receive next does of antibiotic and then be dc to home . She said friend Mary will drive her home.
No VN in past . No SNF hx
Pharmacy [facility]
PCP Dr Aguirre
PLAN Home with no needs
[2025-07-28 19:20] VITALS: BP 124/70
== END 2025-07-28 20:35 | disposition home or self-care (01) ==
LOC: 3 WEST ACU 21:02
PROVIDERS: Clinical Nurse Specialist Family Health; Emergency Medicine; ADMITTING PHYSICIAN Student in an Organized Health Care Education/Training Program; ATTENDING PHYSICIAN Family Medicine; CONSULT PHYSICIAN Internal Medicine Infectious Disease; EMERGENCY PHYSICIAN Student in an Organized Health Care Education/Training Program; FAMILY PHYSICIAN Family Medicine
DX: N61.0 Mastitis without abscess (principal); L29.9 Pruritus, unspecified; F41.9 Anxiety disorder, unspecified; F42.9 Obsessive-compulsive disorder, unspecified; E66.811 Obesity, class 1; Z68.33 Body mass index [BMI] 33.0-33.9, adult; F32.A Depression, unspecified; G47.00 Insomnia, unspecified; I10 Essential (primary) hypertension; B95.62 Methicillin resistant Staphylococcus aureus infection as the cause of diseases classified elsewhere; E28.2 Polycystic ovarian syndrome; F90.9 Attention-deficit hyperactivity disorder, unspecified type; Z11.52 Encounter for screening for COVID-19; Z79.899 Other long term (current) drug therapy
CPT/HCPCS: 80053; 83605; 85025; 87040; 87502; 87811; 96374; 96375; 99285; G0378